=== PATIENT | female | born 2000 | race African-American/Black ===

== ENCOUNTER 2021-12-10 09:55 | Emergency (ER) | payer SELFPAY ==
[2021-12-10 10:29] VITALS: BP 120/59; PULSE 69; RESP 20; TEMP 36.7; O2SAT 98; BMI 27.1
--- OUTSIDE RECORDS SUMMARY | 2021-12-10 14:02 | XMS_ITS | Clinical Summary ---
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 Last Documented On 07/07/2021 1:47PM ; [facility]MP[employer] [facility]: [facility] Oligomenorrhea 07/07/2021 - 12:00AM Pat Nice MAP COLORER Active Last Documented On 07/07/2021 1:47PM ; [facility]: [facility] Plan of Treatment Pending Tests Order Diagnosis Results Due Ordering Provi aaron Follow-up Follow up as needed Oligomenorrhea, 07/07/21 Pat Nice unspecified MAP COLORER Inhouse Labs Urine, Oligomenorrhea, 07/07/21 Pat Nice Only - 01 - unspecified MAP COLORER In-house Labs Lab Chlamydia, 07/14/21 Pat Nice Gonorrhoeae, and MAP COLORER Trichomonas Lab Pap Test Thin Prep 07/14/21 Pat Nice MAP COLORER Assessments Includes: Assessments from this encounter - Visit for: screening for STD - Primary dysmenorrhea - Oligomenorrhea - Screen malignant neoplasm cervix Instructions Includes: Instructions from this encounter Education and Decision Aids were provide d during visit for: Discussed the importance of adequate fo lic acid intake preconception for the prevention of neural tube defects Counseling for STD/HIV prevention Patien t counseled on safe sex practices and condom use for the prevention of STD's Oligomenorrhea, unspecified (Problem) Medical Equipment - Implanted Devices Includes: Current DevicesNo Medical Equipment Recorded Medications Includes: Medications discussed during this encounter and other current MedicationsNo Medications Taken Medications Administered Includes: Administered Medications from this encounterNo Administered Medications Recorded Vital Signs Includes: Vital Signs from this encounter Vital Name 07/07/2021 01:29P Blood Pressure Sitting (mmHg) 100/60 Pulse Rate-Sitting (bpm) 70 Respiration Rate (breaths/min) 18 Height (in) 64 Weight (lb) 136 Body Mass Index (kg/m2) 23.3 Body Surface Area (m2) 1.7 Results Includes: Results discussed during this encounterNo Results Recorded For Specified Dates History of Present Illness Includes: History of Present Illness from this encounter Michael Dover is a 21 year old female. - Allergy list reviewed - Medication list reviewed - Date of last menstruation 2021 - Not using contraception Patient presents with complaints of light irregular cycles over the past year. She has been receiving Depo injections and the last injection she received was sometime between January 2021-March . She will bleed for 1-2 day and then not have any bleeding for 1-2 months. She also has cramping with the episodes of bleeding which is relieved by taking Ibuprofen or Midol. She does desire pregnanc y in the near future so does not wish to be placed on hormonal contraception. Patient is a poor historian. Social History Description Last Updated Tobacco non-user 07/07/2021 A social drinker 07/07/2021 Never used drugs 07/07/2021 Sexually active 07/07/2021 Single 07/07/2021 The racial background is black 07/07/2021 Smoking Status Unknown Procedures and Surgical History Includes: Procedures from this encounter Procedures Code Diagnosis Performing Service Location Service Date Provider Preg Test Urine 75674 Oligomenorrhea, Pat Sparks [facility] Raudel lldarlin 07/07/2021 unspecified [facility] Last Documented On 07/09/2021 9:23AM ; [facility] use of tobacco assessment performed 1000F Last Documented On 07/07/2021 1:43PM ; [facility] review of medications documented 1160F Last Documented On 07/07/2021 1:43PM ; [facility] not tested for HIV Last Documented On 07/07/2021 1:40PM ; [facility] Last Updated No 07/07/2021 Last Documented On 07/07/2021 2:40PM ; [facility] Medical History Includes: Medical History addressed during this encounter Description Last Updated Human papilloma virus vaccine, nonavalent (needs one t o complete series) 07/07/2021 History of anxiety disorder NOS 07/07/2021 History of depression (not currently taking medication ) 07/07/2021 Varicella vaccine (active) (series complete) History of cervical Pap smear (never had) 07/07/2021 Previous STD 2020 Chlamydia 07/07/2021 Smoking status : Never smoker 07/07/2021 Aborta 0 07/07/2021 0 07/07/2021 Para 0 07/07/2021 Family History Includes: Family History addressed during this encounter Description Last Updated Maternal history of substance abuse 07/07/2021 Maternal history of diabetes mellitus 07/07/2021 Review of Systems Includes: Review of Systems from this encounter Systemic: No systemic symptoms. Head: No head symptoms. Neck: No neck symptoms. Eyes: No eye symptoms. Otolaryngeal: No otolaryngeal symptoms. Breasts: No breast symptoms. Cardiovascular: No cardiovascular sympto ms. Pulmonary: No pulmonary symptoms. Gastrointestinal: No gastrointestinal sy mptoms. Genitourinary: No genitourinary symptoms . Endocrine: No endocrine symptoms. Hematologic: No hematologic symptoms. Musculoskeletal: No musculoskeletal symp toms. Neurological: No neurological symptoms. Psychological: No psychological symptoms . Skin: No skin symptoms. Allergic and Immunologic: No allergic/im munologic symptoms. Mental Status Includes: Mental Status from this encounter Description Oriented to time, place, and person Functional Status Includes: Functional Status from this encounterNo Functional Status Recorded Physical Exam Includes: Physical Exam from this encounter Urinary System: -the bladder was not distended -the bladder was not tender -the meatus of the urethra showed no abnormalities Pelvic Exam (Internal): -the vaginal mucosa was normal -no cervical discharge -the uterus was not enlarged -the uterus was not tender -Adnexa was nontender on the right -Adnexa was nontender on the left -the parametrium did not have a mass on the right -the parametrium did not have a mass on the left -the uterus contour was not irregular -the uterus was anteverted -the cervix showed no lesion -the cervix was not tender -a vaginal discharge of scant blood was observed General Status: -well-appearing -In no acute distress Neurological System: -oriented to time, place, and person Musculoskeletal System: -normal movement of all extremities Perineum: -Perineum: normal Psychiatric Exam: -the mood was calm -the mood was pleasant Female Genitalia: -vulva was normal -the labia showed no abnormalities Immunizations Includes: Immunizations addressed during this encounter Vaccine Dose # Date Site Reaction(s) Status Source HPV Human Papilloma 1 04/04/2018 Complete (Reporte d) Patient Virus Vaccine (nonavalent) Last Documented On 07/07/2021 2:11PM ; [facility] HPV Human Papilloma Virus Vaccine 2 06/20/2018 Com plete (Reported) Patient (nonavalent) Last Documented On 07/07/2021 2:11PM ; [facility] Allergies Includes: Active AllergiesNo Known Allergies Encounters Encounter Provider Location Date Check-In Check-Out Diagnosis Time Time New Patient Pat Washington 1:12PM 2:03PM Visi t For: Appointments [facility] 022 S creening Exam Std, Dysmenorrh ea Primary, Oligomenor funmi , Screen Malignant Neoplasm Cervix Insurance Includes: Active Insurance Policies Plan Name Member ID Group # Subscriber Relationship Effective Da marc 1 - [facility] [id number] Michael Hayes
--- OUTSIDE RECORDS SUMMARY | 2021-12-10 14:02 | XMS_ITS ---
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 Pat Sparks 07/07/2021 Arlet SAENZ Visit for: screening for STD New Patient Appointments with Renato Sparks 07/07/2021 Arlet SAENZ Medical Equipment - Implanted Devices Includes: Current and historical DevicesNo Medical Equipment Recorded Medications Includes: Current and historical MedicationsNo Medications Taken Medications Administered Includes: Administered Medications in patient's chartNo Administered Medications Recorded Vital Signs Includes: Vital Signs from 12/10/2020 through 12/10/2021 Vital Name 07/07/2021 01:29P Blood Pressure Sitting (mmHg) 100/60 Pulse Rate-Sitting (bpm) 70 Respiration Rate (breaths/min) 18 Height (in) 64 Weight (lb) 136 Body Mass Index (kg/m2) 23.3 Body Surface Area (m2) 1.7 Results Includes: Results from 12/10/2020 through 12/10/2021 Pap Test Thin Prep [facility] Ordered by Pat Nice NP on 07/07/2021 Collected: 07/07/2021 Reported: 07/08/2021 11:43 Pap Test Thin Prep Negative for Intraepithelial Lesion or Malignanc y N (Normal) Note: Source: CervicalLMP: 2Date Taken: 07/07/2021pecimen Type: ThinPrep VialDa te Reported: 07/08/2021linical Data: Cytotech: JEFFREY Mcmanus(ASCP) Date R eported: 07/08/2021 Specimen Adequacy: Satisfactory for evaluation Endocervical /transformation zone component presentGeneral Categorization: NEGATIVE FOR INTRAEPITHE LIAL LESION OR MALIGNANCYThe following tests have been ordered as requested and a sep arate report willbe issued: Chlamydia, Gonorrhoeae, and Trichomonas This specim en has been analyzed by the ThinPrep Imaging System, an interactivecomputer system wh ich assists the lab in the screening of ThinPrep Pap Testslides. Following imagi ng, the slide was reviewed by a Cytotechnologistand/or Pathologist. End of Report Technical services provided by [facility], [facility], [facility],[address] [place] [address] , [place], [place] [address]WosnrRyland Cuevas MD, Laboratory Directo r. Case reviewed and diagnosis rendered at [facility], [facility], [facility],[address] [place] [address] , [place], [place] [address]LrsotRyland Cuevas MD, Laboratory Directo r. CONFIDENTIAL Reviewed by Pat Nice NP on 2021; All test results are final unless otherwise noted. Chlamydia, Gonorrhoeae, and Trichomonas [facility] Ordered by Pat Nice NP on 07/07/2021 Collected: 07/07/2021 Reported: 07/08/2021 17:54 Neisseria gonorrhoeae, Aptima NOT DETECTED N (N ormal) Note: DNA testing performed by Transcrip tion Mediated Amplification (TMA).Results should be interpreted in conjunction wit h patient history andclinical presentation. This assay is highly accurate, but rare falsepositive and negative results may occur. Positive results in lowprevalence popula tions may require re-evaluation. A negative resultdoes not preclude a possible infec tion due to a specimen inadequacyor sampling error. Test performed by [facility] Latoya banegas/ines/a Cam[address] , [place] [address], Keerthi Dykes DO, [employer]s [employer] Attendant, CLIA# [id number] Chlamydia trachomatis, Aptima NOT DETECTED N (N ormal) Note: DNA testing performed by Transcrip tion Mediated Amplification (TMA).Results should be interpreted in conjunction wit h patient history andclinical presentation. This assay is highly accurate, but rare falsepositive and negative results may occur. Positive results in lowprevalence popula tions may require re-evaluation. A negative resultdoes not preclude a possible infec tion due to a specimen inadequacyor sampling error. Test performed by [facility] Latoya banegas/ines/valarie Den[address] , [place] [address], Keerthi Dykes DO, [employer] Attendant, CLIA# [id number] Trichomonas vaginalis, Aptima (panther) NOT DETECTED N (Normal) Note: DNA testing performed by Transcrip tion Mediated Amplification (TMA).Results should be interpreted in conjunction wit h patient history andclinical presentation. This assay is highly accurate, but rare falsepositive and negative results may occur. Positive results in lowprevalence popula tions may require re-evaluation. A negative resultdoes not preclude a possible infec tion due to a specimen inadequacyor sampling error. Test performed by [facility] Latoya banegas/ines/a [address] , [place] [address], Keerthi Dykes DO, [employer] Attendant, CLIA# [id number] Reviewed by Pat Nice NP on 2021; All test results are final unless otherwise noted. History of Present Illness History of Present Illness not supported for this document typeNo History of Present Illness Recorded Social History Description Last Updated Tobacco non-user 07/07/2021 A social drinker 07/07/2021 Never used drugs 07/07/2021 Sexually active 07/07/2021 Single 07/07/2021 The racial background is black 07/07/2021 Smoking Status Unknown Procedures and Surgical History Includes: Procedures from 12/10/2020 through 12/10/2021 Procedures Code Diagnosis Performing Service Location Service Date Provider Preg Test Urine 15180 Oligomenorrhea, Pat Starks lle 07/07/2021 unspecified [facility]ANCIAL [facility]CHN[facility] Last Documented On 07/09/2021 9:23AM ; [facility] Surgical History Last Updated No 07/07/2021 Last Documented On 07/07/2021 2:40PM ; [facility] Medical History Includes: Medical History in patient's chart Description Last Updated Human papilloma virus vaccine, [...] 0 07/07/2021 Family History Includes: Family History in patient's chart Description Last Updated Maternal history of substance abuse 07/07/2021 Maternal history of diabetes mellitus 07/07/2021 Review of Systems Review of Systems not supported for this document typeNo Review of Systems Recorded Mental Status Mental Status not supported for this document type Description Oriented to time, place, and person Functional Status Functional Status not supported for this document typeNo Functional Status Recorded Physical Exam Physical Exam not supported for this document typeNo Physical Exam Recorded Immunizations Includes: Immunizations in patient's chart Vaccine Dose # Date Site Reaction(s) Status Source HPV Human Papilloma 1 04/04/2018 Complete (Reporte d) Patient Virus Vaccine (nonavalent) Last Documented On 07/07/2021 2:11PM ; [facility] HPV Human Papilloma Virus Vaccine 2 06/20/2018 Com plete (Reported) Patient (nonavalent) Last Documented On 07/07/2021 2:11PM ; [facility] Allergies Includes: Active, inactive, and resolved AllergiesNo Known Allergies Encounters Includes: Encounters from 12/10/2020 through 12/10/2021 Encounter Provider Location Date Check-In Check-Out Diagnosis Time Time New Patient Pat Washington 1:12PM 2:03PM Visi t For: Appointments [facility] 022 S creening Exam Std, Dysmenorrh ea Primary, Oligomenor funmi , Screen Malignant Neoplasm Cervix Insurance Includes: Active Insurance Policies Plan Name Member ID Group # Subscriber Relationship Effective Da marc 1 - [facility] [id number] Michael Dover Self
--- NOTE | 2021-12-10 14:07 | ED_ITS ---
HPI - General Adult General Chief complaint: General Medical Stated complaint: mid chest upper abd pain Time Seen by Provider: 12/10/21 13:53 Source: patient Mode of arrival: ambulatory Limitations: no limitations History of Present Illness HPI narrative: Patient is a 21-year-old female who presents to emergency department for evaluation of epigastric pain. Onset was approximately 2 or 3 years ago. Pain is intermittent. It is exacerbated by certain foods that she eats, or if she presses over her epigastric region while having the pain is exacerbated. Reports that it feels like a heartburn sensation. Denies any fevers, chills, nausea, vomiting, poor p.o. tolerance, chest pain, palpitations, shortness of breath difficulty breathing, bloody or dark stool, recent unintentional weight loss. Right now she denies having this pain. She states that she told the doctor about this in the past and they told her to take a medication, she is uncertain what the name of the medication as and she did not trial the medication. She is currently traveling around the country, stating that she does not have a doctor in the local area, and is not staying for a prolonged period. Related Data Previous Rx's Medication Instructions Recorded omeprazole 20 mg tablet,delayed 20 mg PO DAILY #14 tabs 12/10/21 release Allergies Allergy/AdvReac Type Severity Reaction Status Date / Time No Known Drug Allergies Allergy Unknown Verified 12/10/21 10:27 Review of Systems 2 Review of Systems: Constitutional : No Weight loss, No Fever, No Chills ENT/Mouth :? No sore throat, No Rhinorrhea Eyes: No Swelling, No Redness Cardiovascular : No Chest Pain, No SOB, No Edema Respiratory : No Cough, No Sputum, No Wheezing Gastrointestinal : No Nausea, no Vomiting, no Diarrhea, positive intermittent abdominal pain, No Hematochezia, No Melena Genitourinary : No Dysuria, No Urinary Frequency, No Hematuria, No Urgency? Musculoskeletal : No joint pain, No Myalgias, No Joint Swelling Skin : No Skin Lesions, No rash Neuro : No Weakness, No Numbness, No Dizziness, No Headache Psych : No Anxiety/Panic, No Depression Heme/Lymph: No Bruising, No Lymphadenopathy Endocrine : No Polyuria, No Polydipsia Yes all other systems are reviewed and are negative PMFSH Past Medical History Attestation statement: The following information was validated with the patient. Source: old records reviewed Social History Social History Advance Directives: No Physical Exam ED Vital Signs: Vital Signs - 24 hr 12/10/21 10:29 Temperature 98.1 F Pulse Rate 69 Respiratory Rate 20 Blood Pressure 120/59 L Pulse Oximetry 98 Oxygen Delivery Method Room Air BMI result Body Mass Index 27.1 Vital signs have been reviewed as normal and appeared to be correct. Blood pressure normal.? Heart rate normal.? Respiration rate normal. Temperature normal.? Oxygen saturation normal. Appearance: Alert.?Oriented to person, place and time. No acute distress.?Normal affect. Eyes: Pupils equal, round and reactive to light.? ENT: Pharynx normal.?? Neck: Normal inspection.? Neck supple.?? CVS: Heart sounds normal. Normal heart rate and rhythm.? Pulses normal.?? Respiratory: No respiratory distress.? Lung sounds clear to auscultation bilaterally?? Abdomen: Soft and non-tender. Normoactive bowel sounds. No pulsatile mass.?? Skin: Skin warm and dry.? Normal skin color.? Extremities: No lower extremity edema.? Neuro: Moves all extremities spontaneously. Sensation intact bilaterally. No focal neuro deficits. Ambulates with normal steady gait. Course Course Course Narrative: Patient is a 21-year-old female with no significant past medical history presenting to emergency department for evaluation of intermittent epigastric pain, but is currently not present. Has been ongoing for a few years. Reported to feel like heartburn. Upon physical examination abdominal exam is benign, vital signs are stable. She is well-appearing. In no apparent distress. Offered to obtain serum labs today CBC and CMP however patient declines. Stating she just wanted to know if she had hernia. No obvious or palpable hernia upon examination. Symptoms sound most consistent with a gastritis, advised a trial course of omeprazole, and recommended outpatient follow-up with Gastroenterology when she returns home. Patient verbalized understanding. Discharged home in stable condition. Discharge Plan Discharge Clinical Impression: Gastritis Patient Disposition: Home, Self-Care Instructions: Gastritis (ED) Additional Instructions: Given given a new prescription for omeprazole, please take this daily in the mo rning at least 30 minutes prior to first meal. 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 You may return to emergency department with any new or worsening symptoms or concerns. Prescriptions: New omeprazole 20 mg tablet,delayed release (DR/EC) 20 mg PO DAILY Qty: 14 0RF Interventions: ED Discharge Assessment Last Done: 12/10/21 14:31 Discharge Date/Time: 12/10/21 14:31
== END 2021-12-10 14:31 | disposition home or self-care (01) ==
PROVIDERS: Emergency Provider Emergency Medicine Emergency Medical Services
DX: K29.70 Gastritis, unspecified, without bleeding (principal); R10.13 Epigastric pain
CPT/HCPCS: 99282; 99283